=== PATIENT | female | born 1985 | race Caucasian/White ===

== ENCOUNTER 2019-01-18 15:44 | Emergency (ER) | payer OTHER ==
[~2019-01-18] VITALS: Ht 157.5 cm; Wt 58.7 kg
[~2019-01-18 15:44] MED LIST: ANAPROX DS550 MG PO; FERROUS SULFAT325 MG PO; HYDROCODON-ACE1 EA10 PO; IBUPROFEN600 MG PO; IBUPROFEN800 MG PO; KEFLEX500 MG PO; NORCO 5-325 TA1 EACH PO; OXYCODONE HCL5 MG PO; PRENATAL TABLE1 EAC2 PO; RANITIDINE HCL150 MG PO; SENNA LAX8.6 MG PO; TRAMADOL HCL50 MG PO; ZITHROMAX250 MG PO; ZOFRAN ODT4 MG PO; [UNRECOGNIZED DRUG - OTHER] PO
[2019-01-18] MEDS ORDERED: ZOFRAN4 MG PO (19:29)
[2019-01-18] MEDS ORDERED: NORCO 5-325 TA1 EACH PO (19:29)
== END 2019-01-18 19:44 | disposition home or self-care (01) ==
LOC: ED 15:44
DX: R51 Headache (principal); M54.2 Cervicalgia; M54.6 Pain in thoracic spine; M54.5 Low back pain; F17.200 Nicotine dependence, unspecified, uncomplicated; Z88.1 Allergy status to other antibiotic agents; Z88.2 Allergy status to sulfonamides
CPT/HCPCS: 70450; 70486; 72125; 72128; 72131; 84703; 96361; 96374; 96375; 99284-25; J1170; J2405; J7120